=== PATIENT | female | born 2000 | race Two or more races ===

== ENCOUNTER 2025-02-24 14:07 | Emergency (ER) | payer MEDICAID ==
[~2025-02-24] VITALS: Ht 167.6 cm; Wt 55.8 kg
[2025-02-24 14:21] VITALS: BP 121/70; TEMP 98.2
[2025-02-24] MEDS ORDERED: DOXY100C2 PO (15:44)
[2025-02-24 15:47] VITALS: O2SAT 99
== END 2025-02-24 15:48 | disposition home or self-care (01) ==
LOC: ER 14:22
DX: R05.9 Cough, unspecified (principal); R09.81 Nasal congestion; Z60.2 Problems related to living alone
CPT/HCPCS: 71045-TC